=== PATIENT | female | born 1960 | race Caucasian/White ===

== ENCOUNTER 2017-05-02 13:45 | Inpatient (IN) | payer OTHER ==
[~2017-05-02] VITALS: Ht 162.6 cm; Wt 130.1 kg
[~2017-05-02 13:45] MED LIST: ADALAT CC30 MG PO; ADVIL200 MG PO; BACTRIM DS1 TAB PO; BACTROBAN TOP; BUMETANIDE1 MG PO; CEFAZOLIN SODIUM2 GM IV; CEPHALEXIN500 MG PO; CHLORTHALIDONE25 MG PO; CYMBALTA60 MG PO; DAPSONE100 MG PO; DAPSONE25 MG PO; FERROUS SULFAT325 MG PO; FLUARIX QUADRIV1 IN1 IM; FLUCONAZOLE100 MG PO; FUROSEMIDE40 MG PO; GABAPENTIN400 M2 PO; HYDROCHLOROT12.5 M1 PO; HYDROCORTISO2.51 EX; HYTONE2.5 % EX; IRON325 M1 PO; K-DUR/KLOR-CON20 MEQ PO; KEFLEX500 M1 PO; LASIX20 MG PO; LEVAQUIN750 MG PO; LISINOP/HCTZ1 TA1 PO; LISINOPRIL10 MG PO; LISINOPRIL20 M1 PO; METOLAZONE2.5 MG PO; MUPIROCIN21; MYCOPHENOLAT250 MG PO; NORVASC10 M1 PO; OMEPRAZOLE20 M1 PO; PREDNISONE10 MG PO; PREDNISONE20 MG PO; PRILOSEC20 MG PO; PROTOPIC0.1 % EX; SAVELLA50 MG PO; SILVER SULFA1 % TOP; TACROLIMUS0.1 %; TENORMIN25 M1 PO; TORADOL PO; TRAMADOL HCL50 MG PO; ULTRAM50 M1 PO; ULTRAM50 MG PO; VICOPROFEN PO; VITAMIN B-121000 MCG PO; ZANTAC 150 PO; ZOFRAN4 M1 OR
[2017-05-02 14:19] LABS: HEMOGLOBIN 9.4 g/dl (12.0-16.0); IMMATURE GRANULOCYTES 2.2 % (0.0-1.0); MEAN CELL VOLUME 83.6 fL CALC (80.0-100.0); MEAN CORPUSCULAR HGB 25.3 pG CALC (26.0-32.0); MEAN CORPUSCULAR HGB CONC 30.3 g/L CALC (32.0-36.0); NEUT# 8.81 thou/uL (2.00-7.15); RED BLOOD COUNT 3.71 mill/uL (4.20-5.60); RED CELL DISTRI WIDTH 20.8 % (11.5-15.5)
[2017-05-02 14:37] LABS: ALKALINE PHOSPHATASE 99 u/l (38-126); ANION GAP 15 (6-22 (CALC)); BILIRUBIN, TOTAL 1.9 mg/dL (0.0-1.4); BUN 10 mg/dL (7-17); BUN/CREATININE RATIO 15 (12-20 (CALC)); CALCIUM 8.3 mg/dL (8.4-10.2); CARBON DIOXIDE 26 mmol/l (22-30); CHLORIDE 98 mmol/l (95-108); CREATININE 0.7 mg/dL (0.5-1.0); GFR > 60 ML/MIN (>=60 (CALC)); GFR FOR AFR.AMER. > 60 ML/MIN (>=60 (CALC)); GLUCOSE 166 mg/dL (65-105); SGOT/AST 38 u/l (14-36); SGPT/ALT 40 u/l (9-52); SODIUM 134 mmol/l (137-146); TOTAL PROTEIN 6.6 g/dL (6.3-8.2)
[2017-05-02 14:49] LABS: MYOGLOBIN 44 ng/mL (0 - 62)
[2017-05-02 14:50] LABS: URINE BLOOD DIPSTICK TRACE-INTACT (NEGATIVE); URINE COLOR YELLOW; URINE GLUCOSE - DIPSTICK NEGATIVE (NEGATIVE); URINE KETONE TRACE mg/dL (NEGATIVE); URINE NITRITE - DIPSTICK NEGATIVE (Negative); URINE PROTEIN - DIPSTICK TRACE mg/dL (NEG-TRACE)
[2017-05-02 14:52] LABS: URINE BILIRUBIN - DIPSTICK SMALL (NEGATIVE); URINE CLARITY CLOUDY; URINE LEUK ESTERASE MODERATE (NEGATIVE)
[2017-05-02 15:02] LABS: URINE BACTERIA FEW hpf; URINE SQUAMOUS EPITHELIAL CELL FEW EPI/hpf (0-FEW); URINE WBC TNTC WBC/hpf (0-5)
[2017-05-02 18:25] VITALS: BP 146/76
[2017-05-03 00:40] VITALS: BP 137/82
[2017-05-03 04:20] VITALS: BP 161/87
[2017-05-03 08:11] VITALS: BP 145/90
[2017-05-03 08:37] LABS: HEMATOCRIT 34.3 % (37.0-47.0); HEMOGLOBIN 10.2 g/dl (12.0-16.0); IMMATURE GRANULOCYTES 1.5 % (0.0-1.0); MEAN CELL VOLUME 85.1 fL CALC (80.0-100.0); MEAN CORPUSCULAR HGB 25.3 pG CALC (26.0-32.0); MEAN CORPUSCULAR HGB CONC 29.7 g/L CALC (32.0-36.0); NEUT# 10.41 thou/uL (2.00-7.15); RED BLOOD COUNT 4.03 mill/uL (4.20-5.60)
[2017-05-03 09:24] LABS: ANION GAP 15 (6-22 (CALC)); BUN 8 mg/dL (7-17); BUN/CREATININE RATIO 14 (12-20 (CALC)); CALCIUM 8.2 mg/dL (8.4-10.2); CARBON DIOXIDE 27 mmol/l (22-30); CHLORIDE 100 mmol/l (95-108); CREATININE 0.6 mg/dL (0.5-1.0); GFR > 60 ML/MIN (>=60 (CALC)); GFR FOR AFR.AMER. > 60 ML/MIN (>=60 (CALC)); GLUCOSE 216 mg/dL (65-105); POTASSIUM 4.3 mmol/l (3.5-5.1); SODIUM 137 mmol/l (137-146)
[2017-05-03 11:00] VITALS: BP 123/78
[2017-05-03] MEDS ORDERED: METOPROL TAR25 MG PO (12:20)
[2017-05-03] MEDS ORDERED: BUMETANIDE1 MG PO (12:21)
[2017-05-03] MEDS ORDERED: CLONIDINE0.1 MG PO (12:21)
[2017-05-03] MEDS ORDERED: GLIPIZIDE5 MG PO (12:21)
[2017-05-03 20:05] VITALS: BP 123/78
[2017-05-04 00:30] VITALS: BP 141/88
[2017-05-04 04:49] VITALS: BP 110/74
[2017-05-04 07:32] LABS: HEMATOCRIT 30.8 % (37.0-47.0); MEAN CELL VOLUME 86.3 fL CALC (80.0-100.0); MEAN CORPUSCULAR HGB 25.2 pG CALC (26.0-32.0); MEAN CORPUSCULAR HGB CONC 29.2 g/L CALC (32.0-36.0); RED BLOOD COUNT 3.57 mill/uL (4.20-5.60); RED CELL DISTRI WIDTH 20.6 % (11.5-15.5)
[2017-05-04 07:53] VITALS: BP 127/75
[2017-05-04 07:53] LABS: ALBUMIN 2.9 g/dL (3.2-5.0); ALKALINE PHOSPHATASE 106 u/l (38-126); ANION GAP 13 (6-22 (CALC)); BILIRUBIN, TOTAL 0.8 mg/dL (0.0-1.4); BUN 12 mg/dL (7-17); BUN/CREATININE RATIO 17 (12-20 (CALC)); CALCIUM 8.5 mg/dL (8.4-10.2); CARBON DIOXIDE 28 mmol/l (22-30); CHLORIDE 104 mmol/l (95-108); CREATININE 0.7 mg/dL (0.5-1.0); GFR > 60 ML/MIN (>=60 (CALC)); GFR FOR AFR.AMER. > 60 ML/MIN (>=60 (CALC)); GLUCOSE 222 mg/dL (65-105); POTASSIUM 4.3 mmol/l (3.5-5.1); SGOT/AST 19 u/l (14-36); SGPT/ALT 37 u/l (9-52); SODIUM 141 mmol/l (137-146); TOTAL PROTEIN 6.5 g/dL (6.3-8.2)
[2017-05-04 11:15] VITALS: BP 131/71
[2017-05-04 16:41] VITALS: BP 130/81
[2017-05-04 21:07] VITALS: BP 134/76
[2017-05-05] VITALS: BP 115/72
[2017-05-05 04:43] VITALS: BP 120/75
[2017-05-05 09:02] VITALS: BP 100/62
[2017-05-05] MEDS ORDERED: CEPHALEXIN500 MG PO (10:43)
[2017-05-05] MEDS ORDERED: DOXYCYC MONO100 M2 PO (10:44)
[2017-05-05] MEDS ORDERED: NYSTOP100000 UNI TOP (10:45)
[2017-05-05 13:28] VITALS: BP 110/70
== END 2017-05-05 15:01 | DRG 690 ==
LOC: ED 13:45 → ED-I 15:00 → ED 16:01 → MS2 16:02
PROVIDERS: Emergency Medicine; ADMIT Internal Medicine; ATTEND Internal Medicine
PROC: 0T9B70Z Drainage of Bladder with Drainage Device, Via Natural or Artificial Opening (ICD-10-PCS; principal; 2017-05-02)
DX: N10 Acute pyelonephritis (principal); E11.51 Type 2 diabetes mellitus with diabetic peripheral angiopathy without gangrene; I11.0 Hypertensive heart disease with heart failure; I50.9 Heart failure, unspecified; L97.919 Non-pressure chronic ulcer of unspecified part of right lower leg with unspecified severity; L97.929 Non-pressure chronic ulcer of unspecified part of left lower leg with unspecified severity; B96.20 Unspecified Escherichia coli [E. coli] as the cause of diseases classified elsewhere; D64.9 Anemia, unspecified; I87.2 Venous insufficiency (chronic) (peripheral); K21.9 Gastro-esophageal reflux disease without esophagitis; M79.7 Fibromyalgia; I89.0 Lymphedema, not elsewhere classified; M35.9 Systemic involvement of connective tissue, unspecified; Z91.14 Patient's other noncompliance with medication regimen; Z79.84 Long term (current) use of oral hypoglycemic drugs; Z79.52 Long term (current) use of systemic steroids; Z22.322 Carrier or suspected carrier of Methicillin resistant Staphylococcus aureus; Z99.3 Dependence on wheelchair
CPT/HCPCS: J0692

== ENCOUNTER 2017-07-05 14:36 | Inpatient (IN) | payer OTHER ==
[~2017-07-05] VITALS: Ht 162.6 cm; Wt 128.0 kg
[~2017-07-05 14:36] MED LIST changes: +CLONIDINE0.1 MG PO; +DOXYCYC MONO100 M2 PO; +GLIPIZIDE5 MG PO; +METOPROL TAR25 MG PO; +NYSTOP100000 UNI TOP
[2017-07-05 15:49] LABS: HEMATOCRIT 34.1 % (37.0-47.0); HEMOGLOBIN 10.5 g/dl (12.0-16.0); IMMATURE GRANULOCYTES 1.3 % (0.0-1.0); MEAN CELL VOLUME 94.7 fL CALC (80.0-100.0); MEAN CORPUSCULAR HGB 29.2 pG CALC (26.0-32.0); MEAN CORPUSCULAR HGB CONC 30.8 g/L CALC (32.0-36.0); NEUT# 13.03 thou/uL (2.00-7.15); RED BLOOD COUNT 3.6 mill/uL (4.20-5.60); RED CELL DISTRI WIDTH 19.9 % (11.5-15.5)
[2017-07-05 16:06] LABS: ALBUMIN 3.2 g/dL (3.2-5.0); ALKALINE PHOSPHATASE 140 u/l (38-126); ANION GAP 15 (6-22 (CALC)); BILIRUBIN, TOTAL 1.1 mg/dL (0.0-1.4); BUN 10 mg/dL (7-17); BUN/CREATININE RATIO 18 (12-20 (CALC)); CALCIUM 8.4 mg/dL (8.4-10.2); CARBON DIOXIDE 25 mmol/l (22-30); CHLORIDE 104 mmol/l (95-108); CREATININE 0.6 mg/dL (0.5-1.0); GFR > 60 ML/MIN (>=60 (CALC)); GFR FOR AFR.AMER. > 60 ML/MIN (>=60 (CALC)); GLUCOSE 214 mg/dL (65-105); POTASSIUM 3.8 mmol/l (3.5-5.1); SGOT/AST 32 u/l (14-36); SGPT/ALT 38 u/l (9-52); SODIUM 140 mmol/l (137-146); TOTAL PROTEIN 6.6 g/dL (6.3-8.2)
[2017-07-05] MEDS ORDERED: OXYCODONE HCL5 MG PO (17:20)
[2017-07-05 18:46] VITALS: BP 162/76
[2017-07-05 21:56] VITALS: BP 136/79
[2017-07-06 00:09] VITALS: BP 135/71
[2017-07-06 04:30] VITALS: BP 127/66
[2017-07-06 06:40] LABS: HEMATOCRIT 35.1 % (37.0-47.0); HEMOGLOBIN 10.5 g/dl (12.0-16.0); MEAN CELL VOLUME 96.2 fL CALC (80.0-100.0); MEAN CORPUSCULAR HGB 28.8 pG CALC (26.0-32.0); MEAN CORPUSCULAR HGB CONC 29.9 g/L CALC (32.0-36.0); RED BLOOD COUNT 3.65 mill/uL (4.20-5.60); RED CELL DISTRI WIDTH 19.8 % (11.5-15.5)
[2017-07-06 06:55] LABS: ANION GAP 14 (6-22 (CALC)); BUN 10 mg/dL (7-17); BUN/CREATININE RATIO 16 (12-20 (CALC)); CALCIUM 8.3 mg/dL (8.4-10.2); CALCULATED LDLCHOLESTEROL 37 mg/dL (62-129 (CALC)); CARBON DIOXIDE 30 mmol/l (22-30); CHLORIDE 102 mmol/l (95-108); CREATININE 0.6 mg/dL (0.5-1.0); GFR > 60 ML/MIN (>=60 (CALC)); GFR FOR AFR.AMER. > 60 ML/MIN (>=60 (CALC)); GLUCOSE 143 mg/dL (65-105); HDL CHOLESTEROL 57 mg/dL (>=40); POTASSIUM 3.6 mmol/l (3.5-5.1); SODIUM 143 mmol/l (137-146); TOTAL CHOLESTEROL 111 mg/dl (0-199); TOTAL TRIGLYCERIDES 85 mg/dl (30-149); VLDL CHOLESTROL 17 mg/dl (2-49 (CALC))
[2017-07-06 07:52] VITALS: BP 142/63
[2017-07-06 15:25] VITALS: BP 152/69
[2017-07-06 19:51] VITALS: BP 124/66
[2017-07-07 00:20] VITALS: BP 101/56
[2017-07-07 06:48] LABS: HEMATOCRIT 35.5 % (37.0-47.0); HEMOGLOBIN 10.5 g/dl (12.0-16.0); MEAN CELL VOLUME 97.8 fL CALC (80.0-100.0); MEAN CORPUSCULAR HGB 28.9 pG CALC (26.0-32.0); MEAN CORPUSCULAR HGB CONC 29.6 g/L CALC (32.0-36.0); RED BLOOD COUNT 3.63 mill/uL (4.20-5.60); RED CELL DISTRI WIDTH 19.5 % (11.5-15.5)
[2017-07-07 07:01] LABS: ANION GAP 12 (6-22 (CALC)); BUN 13 mg/dL (7-17); BUN/CREATININE RATIO 23 (12-20 (CALC)); CALCIUM 8.7 mg/dL (8.4-10.2); CARBON DIOXIDE 33 mmol/l (22-30); CHLORIDE 106 mmol/l (95-108); CREATININE 0.6 mg/dL (0.5-1.0); GFR > 60 ML/MIN (>=60 (CALC)); GFR FOR AFR.AMER. > 60 ML/MIN (>=60 (CALC)); GLUCOSE 132 mg/dL (65-105); POTASSIUM 3.5 mmol/l (3.5-5.1); SODIUM 146 mmol/l (137-146)
[2017-07-07 07:52] VITALS: BP 154/76
[2017-07-07 16:45] VITALS: BP 141/72
[2017-07-07 18:54] VITALS: BP 131/79
[2017-07-08 04:43] VITALS: BP 142/82
[2017-07-08 06:39] LABS: HEMATOCRIT 37.4 % (37.0-47.0); MEAN CELL VOLUME 97.9 fL CALC (80.0-100.0); MEAN CORPUSCULAR HGB 28.8 pG CALC (26.0-32.0); MEAN CORPUSCULAR HGB CONC 29.4 g/L CALC (32.0-36.0); RED BLOOD COUNT 3.82 mill/uL (4.20-5.60); RED CELL DISTRI WIDTH 19.4 % (11.5-15.5)
[2017-07-08 06:56] LABS: ANION GAP 11 (6-22 (CALC)); BUN 14 mg/dL (7-17); BUN/CREATININE RATIO 24 (12-20 (CALC)); CALCIUM 8.9 mg/dL (8.4-10.2); CARBON DIOXIDE 33 mmol/l (22-30); CHLORIDE 104 mmol/l (95-108); CREATININE 0.6 mg/dL (0.5-1.0); GFR > 60 ML/MIN (>=60 (CALC)); GFR FOR AFR.AMER. > 60 ML/MIN (>=60 (CALC)); GLUCOSE 126 mg/dL (65-105); POTASSIUM 3.2 mmol/l (3.5-5.1); SODIUM 145 mmol/l (137-146)
[2017-07-08 07:23] VITALS: BP 148/81
[2017-07-08 10:50] VITALS: BP 133/78
[2017-07-08 15:30] VITALS: BP 147/82
[2017-07-08 18:30] VITALS: BP 136/58
[2017-07-08 23:29] LABS: URINE BILIRUBIN - DIPSTICK NEGATIVE (NEGATIVE); URINE BLOOD DIPSTICK NEGATIVE (NEGATIVE); URINE COLOR YELLOW; URINE GLUCOSE - DIPSTICK 250 mg/dL (NEGATIVE); URINE KETONE NEGATIVE (NEGATIVE); URINE LEUK ESTERASE NEGATIVE (NEGATIVE); URINE NITRITE - DIPSTICK NEGATIVE (Negative); URINE PROTEIN - DIPSTICK NEGATIVE (NEG-TRACE); URINE UROBILINOGEN - DIPSTICK 0.2 E.U./dL (0.2)
[2017-07-08 23:43] LABS: URINE CLARITY CLEAR
[2017-07-09 00:16] VITALS: BP 167/74
[2017-07-09 05:32] VITALS: BP 121/73
[2017-07-09 05:55] LABS: HEMATOCRIT 39.2 % (37.0-47.0); HEMOGLOBIN 11.8 g/dl (12.0-16.0); IMMATURE GRANULOCYTES 2.3 % (0.0-1.0); MEAN CELL VOLUME 98.2 fL CALC (80.0-100.0); MEAN CORPUSCULAR HGB 29.6 pG CALC (26.0-32.0); MEAN CORPUSCULAR HGB CONC 30.1 g/L CALC (32.0-36.0); NEUT# 10.18 thou/uL (2.00-7.15); RED BLOOD COUNT 3.99 mill/uL (4.20-5.60)
[2017-07-09 06:11] LABS: ANION GAP 12 (6-22 (CALC)); BUN 15 mg/dL (7-17); BUN/CREATININE RATIO 22 (12-20 (CALC)); CALCIUM 9.1 mg/dL (8.4-10.2); CARBON DIOXIDE 37 mmol/l (22-30); CHLORIDE 100 mmol/l (95-108); CREATININE 0.7 mg/dL (0.5-1.0); GFR > 60 ML/MIN (>=60 (CALC)); GFR FOR AFR.AMER. > 60 ML/MIN (>=60 (CALC)); GLUCOSE 180 mg/dL (65-105); MAGNESIUM 1.9 mg/dL (1.6-2.3); POTASSIUM 3.8 mmol/l (3.5-5.1); SODIUM 145 mmol/l (137-146)
[2017-07-09 07:49] VITALS: BP 134/77
[2017-07-09 07:51] VITALS: BP 134/77
[2017-07-09] MEDS ORDERED: ULTRAM50 M1 PO (14:09)
[2017-07-09] MEDS ORDERED: FLORASTOR250 M1 PO (14:09)
[2017-07-09] MEDS ORDERED: DOXYCYC MONO100 M2 PO (14:09)
[2017-07-09] MEDS ORDERED: CIPROFLOXACN750 MG PO (14:09)
== END 2017-07-09 15:20 | disposition home or self-care (01) | DRG 603 ==
LOC: ED 14:36 → ED-I 16:40 → ED 17:06 → MS2 17:07
PROVIDERS: Emergency Medicine; Nurse Practitioner Family; ADMIT Internal Medicine; ATTEND Internal Medicine
DX: L03.115 Cellulitis of right lower limb (principal); I11.0 Hypertensive heart disease with heart failure; L97.819 Non-pressure chronic ulcer of other part of right lower leg with unspecified severity; I50.9 Heart failure, unspecified; E66.01 Morbid (severe) obesity due to excess calories; B37.2 Candidiasis of skin and nail; E11.9 Type 2 diabetes mellitus without complications; L88 Pyoderma gangrenosum; Z68.42 Body mass index [BMI] 45.0-49.9, adult; M79.7 Fibromyalgia; B96.5 Pseudomonas (aeruginosa) (mallei) (pseudomallei) as the cause of diseases classified elsewhere; I89.0 Lymphedema, not elsewhere classified; K21.9 Gastro-esophageal reflux disease without esophagitis; F32.9 Major depressive disorder, single episode, unspecified; G89.4 Chronic pain syndrome; I87.8 Other specified disorders of veins; E87.6 Hypokalemia; Z79.52 Long term (current) use of systemic steroids; Z79.84 Long term (current) use of oral hypoglycemic drugs; Z22.322 Carrier or suspected carrier of Methicillin resistant Staphylococcus aureus
CPT/HCPCS: J0692; J1650; J3370

== ENCOUNTER 2020-02-19 01:00 | Inpatient (IN) | payer OTHER ==
[~2020-02-19] VITALS: Ht 162.6 cm; Wt 123.9 kg
[~2020-02-19 01:00] MED LIST changes: +CIPROFLOXACN750 MG PO; +FLORASTOR250 M1 PO; +OXYCODONE HCL5 MG PO
--- NOTE | 2020-02-19 01:16 | NUR ---
UNABLE TO RECONCILE MEDS. PATIENT THOUGHT SHE BROUGHT A LIST, UNABLE TO LOCATE IT. UNABLE TO NAME MEDS EITHER.
[2020-02-19 01:38] LABS: HEMATOCRIT 36.3 % (37.0-47.0); HEMOGLOBIN 10.9 g/dl (12.0-16.0); IMMATURE GRANULOCYTES 0.6 % (0.0-5.0); MEAN CELL VOLUME 92.4 fL CALC (80.0-100.0); MEAN CORPUSCULAR HGB 27.7 pG CALC (26.0-32.0); NEUT# 5.91 thou/uL (2.00-7.15); RED BLOOD COUNT 3.93 mill/uL (4.20-5.60); RED CELL DISTRI WIDTH 15.9 % (11.5-15.5)
--- NOTE | 2020-02-19 02:00 | NUR ---
RESTING QUIETLY AWAITING TEST RESULTS.
[2020-02-19 02:01] LABS: ALBUMIN 4.2 g/dL (3.2-5.0); ALKALINE PHOSPHATASE 91 u/l (38-126); BILIRUBIN, TOTAL 0.7 mg/dL (0.0-1.4); BUN 12 mg/dL (7-17); BUN/CREATININE RATIO 22 (12-20 (CALC)); CARBON DIOXIDE 29 mmol/l (22-30); CHLORIDE 93 mmol/l (95-108); CREATININE 0.6 mg/dL (0.5-1.0); GFR > 60 ML/MIN (>=60 (CALC)); GFR FOR AFR.AMER. > 60 ML/MIN (>=60 (CALC)); POTASSIUM 3.3 mmol/l (3.5-5.1); SGOT/AST 26 u/l (14-36); TOTAL PROTEIN 8.2 g/dL (6.3-8.2)
[2020-02-19 02:02] LABS: ANION GAP 12 (6-22 (CALC)); SODIUM 131 mmol/l (137-146)
[2020-02-19 02:13] LABS: MYOGLOBIN 30 ng/mL (0 - 62)
--- NOTE | 2020-02-19 03:00 | NUR ---
RESTING QUIETLY NO CHANGE IN EXAM.
--- NOTE | 2020-02-19 03:48 | NUR ---
DISCUSSED ADMISSION PLANS WITH .
--- NOTE | 2020-02-19 04:30 | NUR ---
Admission Note Report Given to: ABDIAS BARNHART Transported by: X Wheelchair Stretcher Transported with: X Nurse Transporter X Patent IV X O2 X Head Of Digital Location: ICU X MS2
[2020-02-19 04:33] LABS: URINE BILIRUBIN - DIPSTICK NEGATIVE (NEGATIVE); URINE BLOOD DIPSTICK TRACE-INTACT (NEGATIVE); URINE COLOR YELLOW; URINE GLUCOSE - DIPSTICK NEGATIVE (NEGATIVE); URINE LEUK ESTERASE TRACE (NEGATIVE); URINE PROTEIN - DIPSTICK 30 mg/dL (NEG-TRACE); URINE UROBILINOGEN - DIPSTICK 0.2 E.U./dL (0.2)
[2020-02-19 04:35] VITALS: BP 109/66
--- NOTE | 2020-02-19 04:35 | NUR ---
PT ARRIVED TO FLOOR VIA WHEELCHAIR ACCOMPANIED BY ER STAFF. PT ALERT AND ORIENTED X2. PT STOOD AND PIVOT FROM CHAIR TO BED. PT STATES SHE CANNOT WALK AND IS WHEELCHAIR BOUND AT HOME. PT ALSO STATES SHE RENTS ROOM FROM WOMAN THAT IS NOT HER CAREGIVER. PT REPORTS INCONTINENCE OF BOWEL AND BLADDER AT TIMES. MULTIPLE WOUNDS NOTED TO BLE AND ABD. HOME DEPENDANT O2 VIA NC @ 3L/M, INCREASED SOB WITH EXERTION. IV SITE APPEARS HEALTHY, IVF INITIATED. SUPERVISOR PICKING CREW IN PLACE. PT ORIENTED TO ROOM AND CALL LIGHT SYSTEM. CALL LIGHT WITHIN REACH. WILL CONTINUE TO MONITOR.
[2020-02-19 04:41] LABS: URINE KETONE NEGATIVE (NEGATIVE); URINE NITRITE - DIPSTICK POSITIVE (Negative)
[2020-02-19 04:43] LABS: URINE BACTERIA MANY hpf; URINE EPITHELIAL CELLS MANY EPI/hpf (0-FEW); URINE WBC 50-100 WBC/hpf (0-5)
--- NOTE | 2020-02-19 07:20 | NUR ---
ASSESSMENT IS COMPLETED: IV SITE IS FREE FROM REDNESS OR EDEMA. HR IS REG,PULSES ARE STRONG X4, ABD IS SOFT WITH ACTIV EBS. BREATH SOUNDS ARE WHEEZING IN MIDDLE LOBE. TELE MONITOR IN PLACE. PT WAS INCONTINENT OF URINE THIS AM. ABD FOLDS ARE JAYMIE.
--- NOTE | 2020-02-19 08:12 | NUR ---
PT note Patient is screened for PT intervention and it is felt she has no rehab needs at this time
[2020-02-19] MEDS ORDERED: NEURONTIN400 MG PO (09:33)
[2020-02-19] MEDS ORDERED: CYMBALTA60 MG PO (09:35)
[2020-02-19] MEDS ORDERED: DAPSONE100 MG PO (09:36)
[2020-02-19] MEDS ORDERED: PREDNISONE10 MG PO (09:36)
[2020-02-19] MEDS ORDERED: METOPROL TAR25 MG PO (09:38)
[2020-02-19] MEDS ORDERED: GLIPIZIDE ER5 M1 PO (09:38)
[2020-02-19] MEDS ORDERED: TYLENOL 8 HOUR650 MG PO (09:42)
--- NOTE | 2020-02-19 10:07 | NUR ---
RECEIVED A CALL FROM LAB RE: TROPONIN ELEVATED. INFORMED FERMIN CONSTANTINO. NEW ORDERS FOR A REPEAT OF THE TROPONIN
[2020-02-19 10:45] VITALS: BP 154/88
[2020-02-19] MEDS ORDERED: GLIPIZIDE5 MG PO (11:11)
--- NOTE | 2020-02-19 12:00 | NUR ---
PT HAS BEEN RESTING IN BED CONTINUES TO BE INCONTINENT. DR SEWELL IN TO VISIT WITH PT. SUGGESTED BARRIER CREAM TO PROTECT THE SKIN. CONTINUE TO OBSERVE AND MONITOR.
--- NOTE | 2020-02-19 16:00 | NUR ---
PT HAS BEEN RESTING MOST OF THE DAY. IV SITE IS FREE FROM REDNESS OR EDEMA. CONTINUE TO OBSERVE AND MONITOR.
--- NOTE | 2020-02-19 16:28 | NUR ---
RECEIVED A CALL FROM JAYLENE IN THE LAB.TROPONIN IS 0.[address] LUTHER RE: LAB RESULT. WANTS PT SENT TO [facility]. INFORMED MINE CASE MANAGEMENT. TRANSFER CONSENT SIGNED FOR [facility]. BY PT.
[2020-02-19 16:30] VITALS: BP 183/96
--- NOTE | 2020-02-19 17:20 | NUR ---
SPOKE WITH DR LUTHER. NEW ORDERS FOR RAPID SWAB FOR COVID BEFORE GOING TO [facility]. ALSO CHECK ON A CTA. WAS COMPLETED THIS AM. PT'S BP 183/96 AND RECHECK WAS 177/99 NEW ORDER FOR HYDRALAZINE GIVEN AND SENT TO PHARMACY.
--- NOTE | 2020-02-19 18:40 | NUR ---
HYDRALAZINE GIVEN BY SOHAM CALERO FOR BP 183/96 AND 177/99 PT TOLERATED WELL. RAPID BIOFIRE TEST WAS COMPLETED AND SENT TO THE LAB. CONTINUE TO OSBERVE AND MONITOR. WAITING ON [facility] TO CALL WITH A BED NUMBER AND HOSPITALIST.
--- NOTE | 2020-02-19 18:46 | NUR ---
RECEIVED A CALL FROM ERIC AT [facility] WANTING US TO CALL WHEN WE HAVE THE RAPID FOR COVID RESULTS THEN WILL GET A BED NUMBER THE ACCEPTING PHYSICIAN IS DR REGINALDO VIVAS.
--- NOTE | 2020-02-19 19:48 | NUR ---
SPOKE WITH DR LUTHER RE: RESULTS OF COVID RAPID. BEING POSITIVE. AND [facility] BEING BUMPED FOR ER AND ICU. VERBALIZED UNDERSTANDING,. GAVE REPORT TO AICHA ALMONTE
--- NOTE | 2020-02-19 19:56 | NUR ---
[facility] CALLED WITH RAPID BIOFIRE RESULTS. SALES ENGAGEMENT MANAGER SPOKE WITH BLAIRE, STATES SHE WILL NOTIFY PHYSICIAN AND CALL BACK WITH BED ASSIGNMENT.
[2020-02-19 20:00] VITALS: BP 143/86
--- NOTE | 2020-02-19 20:08 | NUR ---
BLAIRE FROM TRANSFER CENTER AT [facility] RETURNED PHONE CALL, STATES "PHYSICIAN SAID PT IS STABLE AT THIS TIME WILL PROVIDED BED ASSIGNMENT TOMORROW MORNING".
--- NOTE | 2020-02-19 20:10 | NUR ---
BOTTLE HOUSE QUALITY CONTROL TECHNICIAN AND LOSS PREVENTION CONSULTANT PHYSICIAN NOTIFIED OF RETURN CALL FROM TRANSFER CENTER AND PENDING BED ASSIGNMENT FOR IN AM. NO NEW ORDERS GIVEN AT THIS TIME, IF PT BECOMES UNSTABLE MAY HAVE TO TRANSFER TO ICU, WILL CONTINUE TO MONITOR.
--- NOTE | 2020-02-19 21:42 | NUR ---
PT MEDICATED ORDERED. PT DENIES ANY PAIN OR SOB AT THIS TIME. PT DID NOT EAT DINNER AND REFUSED INSULIN AT THIS TIME. NO APPARENT DISTRESS NOTED. BOOK REPAIRER IN PLACE. IV SITE APPEARS HEALTHY. DISCUSSED POC. PT VERBALIZED UNDERSTANDING. CALL LIGHT WITHIN REACH. WILL CONTINUE TO MONITOR.
--- NOTE | 2020-02-19 22:12 | NUR ---
PT INCONTINENT OF LARGE AMOUNTS OF URINE. PURWIK APPLIED AT THIS TIME. PERICARE AND LINEN CHANGE PROVIDED. CALL LIGHT WITHIN REACH. WILL CONTINUE TO MONITOR.
[2020-02-20 00:30] VITALS: BP 166/97
--- NOTE | 2020-02-20 01:24 | NUR ---
PT RESTING IN BED WITH EYES CLOSED. NO APPARENT DISTRESS NOTED. RESPIRATIONS EVEN AND UNLABORED. CALL LIGHT WITHIN REACH. WILL CONTINUE TO MONITOR.
[2020-02-20 03:50] VITALS: BP 139/83
--- NOTE | 2020-02-20 04:01 | NUR ---
PT MEDICATED FOR LOWER BACK AND BLE PAIN WITH PRN ULTRAM. PT REPOSITIONED FOR COMFORT. PERICARE PROVIDED. PURWIK FUNCTIONING WELL, 300ML DARK ERNA URINE EMPTIED FROM CANISTER AT THIS TIME. PT DENIES ANY OTHER WANTS OR NEEDS. VSS. NO APPARENT RESPIRATORY DISTRESS NOTED. CALL LIGHT WITHIN REACH. WILL CONTINUE TO MONITOR.
[2020-02-20 05:59] LABS: ALKALINE PHOSPHATASE 77 u/l (38-126); BILIRUBIN, TOTAL 0.6 mg/dL (0.0-1.4); BUN 11 mg/dL (7-17); BUN/CREATININE RATIO 23 (12-20 (CALC)); CARBON DIOXIDE 28 mmol/l (22-30); CHLORIDE 98 mmol/l (95-108); CREATININE 0.5 mg/dL (0.5-1.0); GFR > 60 ML/MIN (>=60 (CALC)); GFR FOR AFR.AMER. > 60 ML/MIN (>=60 (CALC)); SGOT/AST 27 u/l (14-36); SODIUM 132 mmol/l (137-146); TOTAL PROTEIN 6.7 g/dL (6.3-8.2)
[2020-02-20 06:07] LABS: HEMATOCRIT 34.4 % (37.0-47.0); HEMOGLOBIN 10.3 g/dl (12.0-16.0); IMMATURE GRANULOCYTES 0.9 % (0.0-5.0); MEAN CELL VOLUME 93.5 fL CALC (80.0-100.0); MEAN CORPUSCULAR HGB CONC 29.9 g/dL CAL (32.0-36.0); NEUT# 4.75 thou/uL (2.00-7.15); RED BLOOD COUNT 3.68 mill/uL (4.20-5.60); RED CELL DISTRI WIDTH 15.9 % (11.5-15.5)
[2020-02-20 06:17] LABS: ALBUMIN 3.3 g/dL (3.2-5.0); ANION GAP 10 (6-22 (CALC)); C-REACTIVE PROTEIN 15.6 mg/dL (0-0.9); POTASSIUM 4.1 mmol/l (3.5-5.1)
[2020-02-20 07:46] VITALS: BP 165/83
--- NOTE | 2020-02-20 07:47 | NUR ---
PT RESTING IN BED, NO SIGNS OF DISTRESS NOTED, RESP EVEN AND UNLABORED. DISCUSSED TRANSFER WITH PT, SHE DENIES CP AT THIS TIME. PT STATES SHE HAS PAIN TO HER BACK FROM [place]. DISCUSSED POC. NOTED OPEN AREAS TO BLE, SEE CHART FOR PHOTOS, ASSESSMENT COMPLETED, CALL LIGHT IN REACH,CONTINUE TO MONITOR.
[2020-02-20 07:51] VITALS: BP 165/83
--- NOTE | 2020-02-20 08:50 | NUR ---
CALL MADE TO [facility] RECEIVED BED ASSIGNMENT 880 BED A. MADE AWARE.
--- NOTE | 2020-02-20 09:04 | NUR ---
CALL MADE TO [facility], ETA 1HR, PT INFORMED AND PT DISCUSSING WITH FAMILY ON PHONE. CALL LIGHT IN REACH,CONTINUE TO MONITOR.
--- NOTE | 2020-02-20 11:16 | NUR ---
PT TRANSPORTED TO [facility]IA [facility], PT STABLE, BELONGINGS SENT WITH PT. ACCOMPANIED BY [facility] STAFF X2.
--- NOTE | 2020-02-20 11:59 | NUR ---
REPORT GIVEN TO AMIE AT [facility]
== END 2020-02-20 11:16 | disposition short-term general hospital (02) | DRG 177 ==
LOC: ED 01:00 → ED-I 03:33 → ED 03:55 → ED-I 04:05 → MS2 04:13
PROVIDERS: Emergency Medicine; Nurse Practitioner Family; ADMIT Internal Medicine; ATTEND Internal Medicine
DX: U07.1 COVID-19 (principal); J12.89 Other viral pneumonia; L97.929 Non-pressure chronic ulcer of unspecified part of left lower leg with unspecified severity; N39.0 Urinary tract infection, site not specified; Z68.42 Body mass index [BMI] 45.0-49.9, adult; R79.89 Other specified abnormal findings of blood chemistry; R43.8 Other disturbances of smell and taste; E11.51 Type 2 diabetes mellitus with diabetic peripheral angiopathy without gangrene; I11.0 Hypertensive heart disease with heart failure; I50.9 Heart failure, unspecified; M19.90 Unspecified osteoarthritis, unspecified site; M79.7 Fibromyalgia; I89.0 Lymphedema, not elsewhere classified; E87.6 Hypokalemia; R09.02 Hypoxemia; E11.40 Type 2 diabetes mellitus with diabetic neuropathy, unspecified; K21.9 Gastro-esophageal reflux disease without esophagitis; E66.9 Obesity, unspecified; D64.9 Anemia, unspecified; I87.2 Venous insufficiency (chronic) (peripheral); L08.0 Pyoderma; B96.20 Unspecified Escherichia coli [E. coli] as the cause of diseases classified elsewhere; Z79.84 Long term (current) use of oral hypoglycemic drugs
CPT/HCPCS: J1650; Q9967